=== PATIENT | male | born 1975 | race Hispanic/Latino ===

== ENCOUNTER 2021-11-11 13:15 | Emergency (ER) | payer OTHER ==
[~2021-11-11] VITALS: Ht 167.6 cm; Wt 77.2 kg
[2021-11-11] VITALS (8 sets, daily range): BP systolic 108–122; BP diastolic 64–81
[2021-11-11 13:37] LABS: HEMATOCRIT 42.3 % (39.0-50.0); HEMOGLOBIN 14.2 g/dl (14.0-18.0); IMMATURE GRANULOCYTES 0.1 % (0.0-5.0); MEAN CELL VOLUME 98.4 fL CALC (80.0-100.0); MEAN CORPUSCULAR HGB CONC 33.6 g/dL CAL (32.0-36.0); NEUT# 6.84 thou/uL (1.82-7.42); RED BLOOD COUNT 4.3 mill/uL (4.70-6.10); RED CELL DISTRI WIDTH 12.5 % (11.5-15.5)
[2021-11-11 13:46] LABS: ALBUMIN 4.6 g/dL (3.2-5.0); ALKALINE PHOSPHATASE 63 u/l (38-126); ANION GAP 13 (6-22 (CALC)); BILIRUBIN, TOTAL 0.3 mg/dL (0.0-1.4); BUN 16 mg/dL (9-20); BUN/CREATININE RATIO 19 (12-20 (CALC)); CARBON DIOXIDE 22 mmol/l (22-30); CHLORIDE 109 mmol/l (95-108); CPK 128 u/l (52-200); CREATININE 0.9 mg/dL (0.7-1.3); GFR FOR AFR.AMER. > 60 ML/MIN (>=60 (CALC)); GFR OTHER RACES > 60 ML/MIN (>=60 (CALC)); POTASSIUM 4.1 mmol/l (3.5-5.1); SGOT/AST 24 u/l (17-59); SODIUM 140 mmol/l (137-146); TOTAL PROTEIN 8.1 g/dL (6.3-8.2)
[2021-11-11 13:54] LABS: URINE BLOOD DIPSTICK NEGATIVE (NEGATIVE); URINE COLOR ORANGE; URINE GLUCOSE - DIPSTICK NEGATIVE (NEGATIVE); URINE KETONE NEGATIVE (NEGATIVE); URINE LEUK ESTERASE NEGATIVE (NEGATIVE); URINE PROTEIN - DIPSTICK NEGATIVE (NEG-TRACE); URINE SPECIFIC GRAVITY >=1.030; URINE UROBILINOGEN - DIPSTICK 0.2 E.U./dL (0.2)
[2021-11-11 13:58] LABS: URINE BILIRUBIN - DIPSTICK SMALL (NEGATIVE); URINE NITRITE - DIPSTICK NEGATIVE (Negative)
[2021-11-11] MEDS ORDERED: ZOFRAN4 MG/TAB PO (14:47)
== END 2021-11-11 15:06 | disposition home or self-care (01) | DRG 392 ==
LOC: ED 13:15
PROVIDERS: Family Medicine
DX: R11.2 Nausea with vomiting, unspecified (principal); X30.XXXA Exposure to excessive natural heat, initial encounter; Y93.89 Activity, other specified; Y99.0 Civilian activity done for income or pay